=== PATIENT | female | born 1990 | race Caucasian/White ===

== ENCOUNTER 2019-08-30 09:42 | Inpatient (IN) | payer OTHER ==
[~2019-08-30] VITALS: Ht 170.2 cm; Wt 99.1 kg
[2019-08-30] VITALS (17 sets, daily range): BP systolic 82–130; BP diastolic 50–92
[2019-08-30] MEDS ORDERED: LATUDA80 MG PO (09:57)
[2019-08-30] MEDS ORDERED: TRILEPTAL600 MG PO (09:57)
[2019-08-30] MEDS ORDERED: OMEPRAZOLE 20 M20 M1 PO (09:57)
[2019-08-30] MEDS ORDERED: LAMOTRIGINE200 M1 PO (09:58)
[2019-08-30 10:03] LABS: HEMATOCRIT 44.7 % (37.0-47.0); HEMOGLOBIN 14.7 gm/dL (12.0-15.0); MCHC 32.8 g/dL (28.0-37.0); MCV 91.3 fL (80.0-100.0); RBC 4.9 mil/uL (4.20-5.00); RDW 13.9 % (10.5-14.5); WBC 11.5 thou/uL (4.0-11.0)
[2019-08-30 10:06] LABS: URINE BILIRUBIN NEGATIVE (Negative); URINE BLOOD NEGATIVE (Negative); URINE CLARITY CLEAR; URINE COLOR YELLOW; URINE GLUCOSE-RANDOM* NEGATIVE (Negative); URINE KETONES NEGATIVE (Negative); URINE LEUKOCYTES-REFLEX TRACE (Negative); URINE NITRITE-REFLEX NEGATIVE (Negative); URINE PROTEIN (DIPSTICK) NEGATIVE (Negative); URINE SPECIFIC GRAVITY >= 1.030 (1.005-1.035); URINE UROBILINOGEN 0.2 E.U./dl (0.2-1.0)
[2019-08-30 10:10] LABS: CALCIUM 9.1 mg/dL (8.5-10.1); CREATININE 0.8 mg/dL (0.6-1.0); POTASSIUM 4.2 mmol/L (3.5-5.1); SALICYLATE 3.6 mg/dL (2.8-20.0)
[2019-08-30 10:13] LABS: AMP/METHAMP Negative (Negative); BARBITURATES Negative (Negative); BENZODIAZEPINES POSITIVE (Negative); COCAINE Negative (Negative); METHADONE Negative (Negative); OPIATES Negative (Negative); PCP Negative (Negative)
[2019-08-30 11:00] LABS: BE(vivo) -3.9 mmol/L (-2 to +3); HCO3 21.2 mmol/L (22.0-26.0); PCO2 38.9 mmHg (35.0-45.0); PO2 95.1 mmHg (80.0-100.0); pH 7.355 (7.360-7.450)
--- NOTE | 2019-08-30 16:15 | NUR ---
ASSUMED CARE 1330, PT ARRIVED ON THE UNIT WITH AN RN AND SITTER. SPONGE CLIPPER WAS TOLD THAT ROOM WAS NOT READY YET, PT WAS BROUGHT ANYWAYS AND PUT IN THE HALLWAY, PT HAD TO BE MOVED FROM THE HALLWAY TO POD # 3 UNTIL THE ROOM WAS READY AND THEN STRIPPED FOR SI PRECAUTIONS. PT ARRIVED WITH MULTIPLE MEDICATIONS, MEDICATIONS WERE SEALED IN A PHARMACY BAG, COSIGNED BY ANOTHER RN AND GIVEN TO ALEJANDRO LUX.
[2019-08-31] VITALS (13 sets, daily range): BP systolic 91–115; BP diastolic 48–69
--- NOTE | 2019-08-31 05:00 | NUR ---
PT HAS SLEPT ALL NIGHT. DROUSY AROUSES EASILY. COOPERATIVE. FLAT AFFECT. O2 SAT 98 % ON ROOM AIR. DENIES PAIN NOR DISCOMFORT. QUESTIONED PT IF SHE STILL WANTED TO HURT HERSELF AND SHE STATES NO. VITALY PLACED EARLIER. 600 CC UO THIS SHIFT. WILL CONT TO MONITOR CLOSELY. REMAINS ON SI PRECAUTIONS WITH 1:1 SITTER WILL CONT TO MONITOR CLOSELY.
[2019-08-31 05:39] LABS: HEMATOCRIT 38.3 % (37.0-47.0); MCH 30.1 pg (26.0-34.0); MCV 91.3 fL (80.0-100.0); RBC 4.2 mil/uL (4.20-5.00); RDW 14.1 % (10.5-14.5); WBC 8.1 thou/uL (4.0-11.0)
[2019-08-31 05:43] LABS: HEMOGLOBIN 12.7 gm/dL (12.0-15.0)
[2019-08-31 05:54] LABS: ALBUMIN 3.1 g/dL (3.4-5.0); CALCIUM 8.4 mg/dL (8.5-10.1); CREATININE 0.8 mg/dL (0.6-1.0); TOTAL BILIRUBIN 0.2 mg/dL (<0.1-1.0); TOTAL PROTEIN 6.3 g/dL (6.4-8.2)
--- NOTE | 2019-08-31 12:21 | NUR ---
PT REMAINS IN 1:[address] SIMEON TO SEE PATIENT. NOT ALLOWING VISITORS AT THIS TIME. VSS. PT ALERT AND ORIENTED. SLEEPING ALOT BUT WILL AROUSE AND CONVERSE WHEN STIMULATED. CHANGED DIET FROM NPO TO REGULAR DIET. IV FLUIDS INFUSING. PATIENT VOICES NO NEEDS OR CONCERNS AT THIS TIME. POSION CONTROL CALLED FOR PATIENT UPDATE, REPORTED THEY WILL SIGN OFF ON CASE. MEDSUR TRANSFER ORDERS. PT WILL TRANSFER TO ROOM 445 WITH SITTER.
--- NOTE | 2019-08-31 16:35 | NUR ---
PT ARRIVED AT 1325 V.S. 98.2 18 100 125/72 O2 SAT= 100 % RA PT ALERT XS 4 PLEASANT AND COOPERATIVE WITH CARE. PT TOOK SHOWER. ATE LUNCH. PT STATES NO PAIN NO RESP DISTRESS AT PRESENT. SKIN HAS SCRATCHES ON RIGHT OUTER HIP PATIENT STATES SHE DID TO SELF AT HOME. OTHER THAN THAT AREA SKIN IS INTACT. HAIDER DCD AND PATIENT IS USING TOILET CONT OF B&B. HAD BM TODAY. ACCU CHECK AT LUNCH WAS 87. PT HAS 1-1 DR SIMEON WILL ASSESS PATIENT TODAY. SAW YESTERDAY ICU NURSE STATED.
[2019-09-01 04:00] VITALS: BP 106/52
--- NOTE | 2019-09-01 04:00 | NUR ---
PT AMBULATING TO BATHROOM INDEPENDENTLY AND IS TOLERATING FAIR. DENIES PAIN. RESTING COMFORTABLY. NO NEEDS VOICED. SITTER WITH PT. WILL CONTINUE TO PROVIDE FREQUENT OBSERVATION.
[2019-09-01 09:02] VITALS: BP 101/66
[2019-09-01 17:05] VITALS: BP 106/63
--- NOTE | 2019-09-01 18:02 | NUR ---
PT ASSESSED AT START OF SHIFT. PT ALERT CALM AND COOPERATIVE W/ CARE. AFFECT BRIGHT, STATES NO AUDITORY HALLUCINATIONS TODAY AND IS FEELING BETTER. SITTER AT BEDSIDE. MOTHER CALLED TO CK ON PT. AWAITING DR. SIMEON TO ROUND FOR CONSULT.
--- NOTE | 2019-09-01 21:13 | NUR ---
PATIENT LEFT BUILDING AT 2100 AGAINST MEDICAL ADVICE DESPITE TRYING TO CONVICE HER TO STAY. PATIENT PROVIDED EDUCATION, IV DC'D, AND COPY IF AMA PAPERWORK PROVIDED. PATIENT WAS PICKED UP BY FATHER
[2019-09-03 21:08] LABS: TRICYCLIC (TCA) CONFIRMATION Positive ng/mL (Cutoff=100)
== END 2019-09-01 22:33 | disposition left against medical advice (07) | DRG 917 ==
LOC: ER 09:42 → EROBS 11:06 → ICU 13:02 → 4S 08-31 13:29
PROVIDERS: Emergency Medicine; Psychiatry & Neurology Psychiatry; ADMIT Hospitalist
DX: T42.1X2A Poisoning by iminostilbenes, intentional self-harm, initial encounter (principal); G92 Toxic encephalopathy; R45.851 Suicidal ideations; F31.9 Bipolar disorder, unspecified; E11.9 Type 2 diabetes mellitus without complications; R41.0 Disorientation, unspecified; Z28.21 Immunization not carried out because of patient refusal; Y92.89 Other specified places as the place of occurrence of the external cause
CPT/HCPCS: 10078; 10102

== ENCOUNTER 2020-03-04 21:17 | Emergency (ER) | payer OTHER ==
[~2020-03-04] VITALS: Ht 172.7 cm; Wt 90.7 kg
[~2020-03-04 21:17] MED LIST: LAMOTRIGINE200 M1 PO; LATUDA80 MG PO; OMEPRAZOLE 20 M20 M1 PO; TRILEPTAL600 MG PO
[2020-03-04] MEDS ORDERED: ZYPREXA2.5 MG (21:31)
[2020-03-04] MEDS ORDERED: BUSPAR30 MG PO (21:31)
[2020-03-04] MEDS ORDERED: SEROQUEL200 MG PO (21:32)
[2020-03-04 21:55] LABS: URINE BILIRUBIN 1+ (Negative); URINE BLOOD NEGATIVE (Negative); URINE CLARITY SL CLOUDY; URINE COLOR YELLOW; URINE GLUCOSE-RANDOM* NEGATIVE (Negative); URINE KETONES NEGATIVE (Negative); URINE LEUKOCYTES-REFLEX TRACE (Negative); URINE NITRITE-REFLEX NEGATIVE (Negative); URINE PROTEIN (DIPSTICK) TRACE (Negative); URINE SPECIFIC GRAVITY >= 1.030 (1.005-1.035); URINE UROBILINOGEN 0.2 E.U./dl (0.2-1.0)
[2020-03-04 21:56] LABS: ICTOTEST (BILI CONFIRMATORY) Negative (Negative)
[2020-03-04 22:02] LABS: AMP/METHAMP POSITIVE (Negative); BARBITURATES Negative (Negative); BENZODIAZEPINES POSITIVE (Negative); COCAINE Negative (Negative); METHADONE Negative (Negative); OPIATES Negative (Negative); PCP Negative (Negative)
[2020-03-04 22:23] LABS: ABSOLUTE NEUTROPHILS 6.6 thou/uL (1.4-8.2); BASOPHILS 0.6 % (0.0-2.0); EOSINOPHILS 2.9 % (0.0-3.0); HEMATOCRIT 45.2 % (37.0-47.0); HEMOGLOBIN 15.5 gm/dL (12.0-15.0); LYMPHOCYTES 20.1 % (24.0-44.0); MCHC 34.2 g/dL (28.0-37.0); MCV 90.5 fL (80.0-100.0); MONOCYTES 7.9 % (1.0-8.0); PLATELET COUNT 229 thou/uL (150-400); POLYS 68.5 % (36.0-66.0); RBC 4.99 mil/uL (4.20-5.00); RDW 13.7 % (10.5-14.5); WBC 9.7 thou/uL (4.0-11.0)
[2020-03-04 22:33] LABS: CALCIUM 9.2 mg/dL (8.5-10.1); CREATININE 0.8 mg/dL (0.6-1.0); POTASSIUM 3.6 mmol/L (3.5-5.1)
[2020-03-04 22:39] LABS: SALICYLATE 3.3 mg/dL (2.8-20.0); TOTAL BILIRUBIN 0.5 mg/dL (0.2-1.0); TOTAL PROTEIN 7.7 g/dL (6.4-8.2)
[2020-03-05 02:14] VITALS: BP 104/60
--- NOTE | 2020-03-05 07:54 | EKG ---
[facility] [place] [address] ELECTROCARDIOGRAM REPORT Name: LEON SAUER Room #: DEP [facility]#: [id number] Admission: 03/04/20 Attend Phys: Discharge: 03/05/20 Date of : 86 Report #: [id number] THIS REPORT FOR: cc: ALBERTO - No family physician/PCP ALBERTO - Kayla family physician/PCP Dmitriy Paz MD [facility] THIS REPORT FOR: //name// [facility] ED Test Date: 2020-03-04 Test Time: 21:32:26 Pat Name: LEON SAUER Department: Room: Gender: F Housekeeping Associate: [facility] : 1990 Requested By: Ramila Loyd Order Number: [id number] MD: Dmitriy Paz Measurements Intervals [place] Rate: 89 P: 55 ME: 120 QRS: 28 QRSD: 77 T: 55 QT: 360 QTc: 439 Interpretive Statements Sinus rhythm Normal tracing No previous ECG available for comparison Electronically Signed On 03-05-2020 7:54:45 CDT by Dmitriy Paz [email or web address] <ELECTRONICALLY SIGNED> By: Dmitriy Paz MD, [facility] 03/05/20 [id number] Dmitriy Paz MD, FACC /EPI
== END 2020-03-05 02:16 | disposition home or self-care (01) ==
LOC: ER 21:17
PROVIDERS: Physician Assistant
DX: F41.9 Anxiety disorder, unspecified (principal); R55 Syncope and collapse; R06.02 Shortness of breath; F31.81 Bipolar II disorder; E11.9 Type 2 diabetes mellitus without complications; F25.9 Schizoaffective disorder, unspecified; Z79.899 Other long term (current) drug therapy; F17.210 Nicotine dependence, cigarettes, uncomplicated

== ENCOUNTER 2020-03-25 06:42 | Emergency (ER) | payer OTHER ==
[~2020-03-25] VITALS: Ht 170.2 cm; Wt 90.7 kg
[~2020-03-25 06:42] MED LIST changes: +BUSPAR30 MG PO; +SEROQUEL200 MG PO; +ZYPREXA2.5 MG
[2020-03-25] MEDS ORDERED: TRAZODONE HCL50 MG PO (06:52)
[2020-03-25] MEDS ORDERED: HYDROXYZINE HCL25 M2 PO (06:53)
[2020-03-25] MEDS ORDERED: PROPANOLOL PO (06:53)
[2020-03-25] MEDS ORDERED: CLINDAMYCIN HC300 MG PO (07:58)
[2020-03-25 08:17] VITALS: BP 111/85
== END 2020-03-25 08:17 | disposition home or self-care (01) ==
LOC: ER 06:42
DX: L97.919 Non-pressure chronic ulcer of unspecified part of right lower leg with unspecified severity (principal); F15.10 Other stimulant abuse, uncomplicated; F31.9 Bipolar disorder, unspecified; E11.9 Type 2 diabetes mellitus without complications; F25.9 Schizoaffective disorder, unspecified; F17.210 Nicotine dependence, cigarettes, uncomplicated; Z79.899 Other long term (current) drug therapy; Z88.0 Allergy status to penicillin